=== PATIENT | female | born 1980 | race Two or more races ===

== ENCOUNTER 2017-06-21 18:40 | Emergency (ER) | payer MEDICAID ==
[~2017-06-21] VITALS: Ht 160 cm; Wt 68.0 kg
[2017-06-21] MEDS ORDERED: PROPOFOL 100 ML IV ONE (20:38)
[2017-06-21] MEDS ORDERED: SODIUM CHLORIDE 0.9% 250 ML IV ONE (20:45)
[2017-06-21] MEDS ORDERED: PROPOFOL 10 MG/ML 20 ML IV ONE (20:45)
[2017-06-21] MEDS ORDERED: FAMOTIDINE (10MG/ML) 2ML VL IV ONE (20:45)
[2017-06-21] MEDS ORDERED: METOCLOPRAMIDE HCL 5MG/ml INJ 2ml VIAL IV ONE (20:45)
[2017-06-21] MEDS ORDERED: HYDROcodone-ACET 5/325MG TAB PO ONE (21:45)
[2017-06-21 22:31] VITALS: BP 113/75
== END 2017-06-21 23:06 | disposition home or self-care (01) ==
LOC: ER 18:44
DX: S43.015A Anterior dislocation of left humerus, initial encounter (principal); V86.55XA Driver of 3- or 4- wheeled all-terrain vehicle (ATV) injured in nontraffic accident, initial encounter; Y93.89 Activity, other specified; Y99.8 Other external cause status; Y92.89 Other specified places as the place of occurrence of the external cause
CPT/HCPCS: 23650; 73020; 73030; 96374; 96375; 99285; J2704; J2765; J3490